=== PATIENT | female | born 1990 | race Caucasian/White ===

== ENCOUNTER → 2018-05-18 18:09 | Observation (INO) ==
[2018-05-18 14:47] LABS: Amphetamine Screen,Urine Negative ng/mL (Cutoff=1000); Barbiturate Screen,Urine Negative ng/mL (Cutoff=200); Benzodiazepines Screen,Urine Negative ng/mL (Cutoff=200); Cannabinoid Screen,Urine Negative ng/mL (Cutoff = 50); Cocaine Screen,Urine Negative ng/mL (Cutoff= 300); Opiate Screen,Urine Negative ng/mL (Cutoff=300); Phencyclidine Screen,Urine Negative ng/mL (Cutoff=25)
[2018-05-18 15:32] LABS: Bilirubin,Urine Negative (Negative); Blood,Urine Negative (Negative); Clarity,Urine Cloudy (Clear); Color,Urine Yellow (Yellow); Glucose,Urine (UA) Normal (Normal); Ketones,Urine Trace mg/dL (Negative); Leukocyte Esterase,Urine Small (Negative); Nitrite,Urine Negative (Negative); Protein,Urine Negative (Neg-Trace); Specific Gravity,Urine 1.016 (1.010-1.025); Urobilinogen,Urine Normal (Normal)
[2018-05-18 15:34] LABS: Bacteria,Urine Moderate per hpf (None-Few); Hyaline Casts,Urine None Seen per lpf (None-Few); Squamous Epithelial Cell,Urine Many per lpf (None-Few)
[2018-05-18 15:43] LABS: Calcium Oxalate Crystals,Urine Present
[2018-05-18 15:44] LABS: RBC,Urine 0-3 per hpf (0-3)
[2018-05-18 17:14] LABS: Trichomonas DNA Not Detected (Not Detect)
[2018-05-18 17:15] LABS: Candida DNA Not Detected (Not Detect); Gardnerella DNA Not Detected (Not Detect)
--- NOTE | 2018-05-18 17:43 | Discharge Summary ---
Date of Encounter: 05/18/18 Time of Encounter: 17:33 - Discharge Diagnosis (1) 34 weeks gestation of Priority: Primary Status: Acute Comments: Admitted to observation for complaint of possible SROM (2) NST (non-stress test) reactive Priority: Secondary Status: Acute Comments: FHR 150 bpm, moderate variability, +15x15 accels, no decels at time of note. At approximately 1420, patient had a spell of dizziness, sweating and her blood pressure dropped. With that, a FHR decel was traced down to 90bpm with broken tracing as it returned to baseline. One late deceleration was noted at 1430 with quick return to baseline. The BP at this point was 97/57. Patient was given an IV fluid bolus and has had no return of symptoms since that time. The FHR tracing has returned to Category I with a reactive tracing. Assuming these decels were a response to drop in blood pressure. (3) Vaginal discharge during Priority: Secondary Status: Acute Comments: Patient with complaint of fluid leakage since this morning. SSE reveals moderate amount of normal creamy white discharge. Samples obtained for FERN and vaginosis panel. Both returned negative. Qualifiers: Trimester: third trimester Qualified Code(s): O26.893 - Other specified related conditions, third trimester; N89.8 - Other specified noninflammatory disorders of vagina - Discharge Medications Prescriptions: No Action Acetaminophen [Tylenol] 500 mg PO Q6HR PRN #20 tablet PRN Reason: Pain Home Medications: Acetaminophen [Tylenol] 500 mg PO Q6HR PRN #20 tablet 03/24/18 [Rx] Allergies/Adverse Reactions: Allergy/AdvReac Type Severity Reaction Status Date / Time No Known Allergies Allergy Verified 03/24/18 16:04 Data Procedures and tests throughout hospitalization: Laboratory Tests 05/18/18 05/18/18 05/18/18 13:56 13:56 16:10 Urine Color Yellow Urine Clarity Cloudy A Urine pH 7.0 Ur Specific Ransom 1.016 Urine Protein Negative Urine Glucose (UA) Normal Urine Ketones Trace H Urine Blood Negative Urine Nitrite Negative Urine Bilirubin Negative Urine Urobilinogen Normal Ur Leukocyte Esterase Small H Urine Microscopic RBC 0-3 Urine Microscopic WBC 3-5 H Ur Squamous Epith Cells Many H Calcium Oxalate Crystal Present Urine Bacteria Moderate H Hyaline Casts None Seen Ur Culture Indicated? NO. A Urine Opiates Screen Negative Ur Barbiturates Screen Negative Ur Phencyclidine Scrn Negative Ur Amphetamines Screen Negative U Benzodiazepines Scrn Negative Urine Cocaine Screen Negative U Marijuana (THC) Screen Negative Ur Drug Screen Interp See Below Shila species DNA Not Detected Gardnerella DNA Probe Not Detected Trichomonas DNA Probe Not Detected Labs on day of discharge: Labs from last 24 hours 05/18/18 05/18/18 05/18/18 16:10 13:56 13:56 Urine Color Yellow Urine Clarity Cloudy A Urine pH 7.0 Ur Specific Ransom 1.016 Urine Protein Negative Urine Glucose (UA) Normal Urine Ketones Trace H Urine Blood Negative Urine Nitrite Negative Urine Bilirubin Negative Urine Urobilinogen Normal Ur Leukocyte Esterase Small H Urine Microscopic RBC 0-3 Urine Microscopic WBC 3-5 H Ur Squamous Epith Cells Many H Calcium Oxalate Crystal Present Urine Bacteria Moderate H Hyaline Casts None Seen Ur Culture Indicated? NO. A Urine Opiates Screen Negative Ur Barbiturates Screen Negative Ur Phencyclidine Scrn Negative Ur Amphetamines Screen Negative U Benzodiazepines Scrn Negative Urine Cocaine Screen Negative U Marijuana (THC) Screen Negative Ur Drug Screen Interp See Below Shila species DNA Not Detected Gardnerella DNA Probe Not Detected Trichomonas DNA Probe Not Detected Date of admission: 05/18/18 13:20 Discharging clinician: Kae Brannon Anticipated date of discharge: 05/18/18 - Patient Status Disposition: Home, Self-Care Condition: Good Functional capacity at discharge: independent ambulation Overall status at discharge: patient is progressing back to baseline - Discharge Instructions - Diet and Activity Activity: resume usual activities as tolerated Diet: regular diet 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 States she did not feel like it was urine but had a small gush earlier today. Upon examination, nitrazine was negative. SSE revealed normal vaginal mucous with a negative FERN and vaginosis panel. Patient is to return to her primary OB provider as scheduled for routine care. Time Attestation: Total time spent providing and/or coordinating discharge services: Time Spent: Less than 30 minutes Exam - Constitutional General appearance IM: A&O X 3, pleasant, no acute distress, answers questions appropriately - Respiratory Respiratory exam: Present: CTAB - Cardiovascular Cardiovascular exam IM: Present: RRR, +S1, +S2 - GI/Abdominal GI/Abdominal exam IM: normal bowel sounds, soft - Rectal Rectal exam: deferred - External exam: normal external exam - Extremities Exam Extremities exam IM: Present: full ROM, normal capillary refill, normal inspection, pedal edema - Neurological Exam Neurological exam: alert, normal gait, oriented X3 - VTE Reasons for not Prescribing Prophylaxis: Treatment not Indicated - Low risk for VTE
[~2018-05-18 18:09] MED LIST: Ringers Solution, Lactated 1,000 ML ONE
== END | disposition home or self-care (01) ==
LOC: 1NENULAB
PROVIDERS: ADMIT Registered Nurse; ATTEND Registered Nurse